=== PATIENT | male | born 1965 | race African-American/Black ===

== ENCOUNTER 2023-03-22 13:36 | Emergency (ER) | payer SELFPAY ==
[~2023-03-22] VITALS: Ht 165.1 cm; Wt 59.4 kg
[2023-03-22 14:18] VITALS: O2SAT 99
[2023-03-22 19:14] LABS: CLARITY URINE CLEAR (CLEAR); COLOR URINE YELLOW (YELLOW); GLUCOSE URINE NEGATIVE (NEGATIVE); KETONES URINE 1+ (NEGATIVE); LEUKOCYTE ESTERASE URINE NEGATIVE (NEGATIVE); NITRITE URINE NEGATIVE (NEGATIVE); OCCULT BLOOD URINE TRACE (NEGATIVE); PH URINE 5.5 (4.5-8.0); PROTEIN URINE NEGATIVE (NEGATIVE); SPECIFIC GRAVITY URINE 1.012 (1.005-1.030); UROBILINOGEN URINE 0.2 E.U./dL (0.2-1.0)
[2023-03-22 19:16] LABS: BACTERIA URINE NONE SEEN; SQUAMOUS EPITHELIAL CELL URINE NONE SEEN /lpf (RARE/1+); WBC URINE NONE SEEN /hpf (0-2); YEAST URINE NONE SEEN
[2023-03-22 19:28] LABS: RBC URINE 0-2 /hpf (0-2)
[2023-03-22 23:39] VITALS: BP 118/75; PULSE 77; RESP 16; TEMP 98.2
== END 2023-03-22 23:44 | disposition home or self-care (01) ==
LOC: ER 13:36
DX: R33.9 Retention of urine, unspecified (principal); Z98.890 Other specified postprocedural states
CPT/HCPCS: 81003; 87086; 51702; 99284; Z7610; A4315